=== PATIENT | female | born 1950 | race Caucasian/White ===

== ENCOUNTER 2024-04-23 12:15 | Outpatient (CLI) | payer OTHER, SELFPAY ==
[2024-04-23] MEDS: PERFLUTREN LIPID MICROSPHERES 2 ML VIAL IVP (15:06)
== END 2024-04-23 12:16 | disposition home or self-care (01) ==
LOC: RAD 12:19
PROVIDERS: Visit Provider Chiropractor
DX: R07.89 Other chest pain (principal)
CPT/HCPCS: 93306; Q9957